=== PATIENT | male | born 1980 | race Caucasian/White ===

== ENCOUNTER 2022-05-19 12:49 | Emergency (ER) | payer BC, SELFPAY ==
[2022-05-19 12:51] VITALS: BP 164/91; PULSE 86; RESP 20; TEMP 36.6; O2SAT 100
--- NOTE | 2022-05-19 12:53 | ED.CHESTPAIN ---
HPI - Chest Pain General Chief Complaint: Chest Pain Stated Complaint: Chest pain over heart Time Seen by Provider: 05/19/22 13:04 Mode of arrival: ambulatory Limitations: no limitations History of Present Illness HPI narrative: 41-year-old male presents with concern for left anterior chest pain that started 1 week ago. He reports pain worsens with movement, reports the area is tender. He did not have any injury or trauma. He denies any rash, bruising, swelling. He works in construction. He denies diaphoresis, nausea, pain radiating to the arm, shoulder, neck or jaw. He has not taken any medications for his symptoms MD complaint: chest pain Related Data Home Medications Medication Instructions Recorded Confirmed insulin lispro 100 unit/mL subcut 05/19/22 subcutaneous pen (Humalog KwikPen (U-100) Insulin) Allergies Allergy/AdvReac Type Severity Reaction Status Date / Time No Known Allergies Allergy Unverified 05/19/22 12:59 Review of Systems Review of Systems: CONSTITUTIONAL: Denies malaise, chills, sweats, or fever. CARDIOVASCULAR: Denies chest pain, palpitations, or edema. RESPIRATORY: Denies cough or dyspnea. GASTROINTESTINAL: Denies abdominal pain, nausea, vomiting SKIN: Denies rash or itching. MUSCULOSKELETAL: Denies back pain, joint pain, or myalgia. Reports anterior chest wall pain NEUROLOGIC: Denies numbness, weakness, or headache. All systems reviewed & are unremarkable except as noted in HPI and below PMFSH Comments At time of signature, agree with nursing past medical, surgical, social and family history. There is no relevant family history pertinent to the presenting complaint Exam Narrative: GENERAL: Well-appearing, well-nourished, and in no acute distress. HEAD: Normocephalic, atraumatic. EYES: PERRLA, sclera clear, and EOMI. No nystagmus. ENT: Nares clear, turbinates pink, no rhinorrhea or epistaxis. Mucous membranes moist. NECK: Supple. No lymphadenopathy. No jugular venous distension, thyromegaly, or carotid bruits. Carotids were easily palpable bilaterally. CHEST: No respiratory distress. Clear to auscultation. No bony deformities, no asymmetry. Speaks in full sentences. HEART: Regular rate and rhythm. No murmur heard. Normal peripheral pulses. EXTREMITIES: Normal range of motion. No edema. Normal strength and sensation. Tenderness upon palpation to the left lateral rib area, around ribs 5 and 6 SKIN: Warm, dry, no visible rash, bruising, swelling, redness. NEURO: Alert and oriented x3. No focal deficits. Cranial nerves II through XII grossly intact PSYCH: Normal mood and affect Course Course Emergency Course: Patient is aware of diagnosis, understands and agrees to treatment plan. Anticipatory guidance given. Patient agrees to follow-up as directed and is aware of reasons to seek care at the emergency department. Portions of this record may have been created with voice recognition software Level of Care: Express Care Visit Vital Signs Vital signs: Vital Signs Temperature 97.9 F 05/19/22 12:51 Pulse Rate 86 05/19/22 12:51 Respiratory Rate 20 05/19/22 12:51 Blood Pressure 164/91 H 05/19/22 12:51 Pulse Oximetry 100 05/19/22 12:51 Oxygen Delivery Room Air 05/19/22 12:51 Temperature 97.9 F 05/19/22 12:51 Pulse Rate 86 05/19/22 12:51 Respiratory Rate 20 05/19/22 12:51 Blood Pressure 164/91 H 05/19/22 12:51 Pulse Oximetry 100 05/19/22 12:51 Oxygen Delivery Room Air 05/19/22 12:51 Reviewed. MDM - Chest Pain MDM Narrative Medical decision making narrative: EDACS score is 2, indicating low risk for adverse cardiac event Exam findings and EKG show no acute concerns or changes; patient is non-toxic appearing and is in no distress. Patient is appropriate for outpatient treatment and follow-up. Differential Diagnosis Differential diagnosis: Likely fracture of rib, pneumothorax, atypical chest pain, st elevation myocardial infarction, cos
--- NOTE | 2022-05-19 13:09 | ECG_ITS ---
Measurements Intervals [place] Rate: 80 P: 40 MI: 132 QRS: 51 QRSD: 94 T: 37 QT: 356 QTc: 413 Interpretive Statements SINUS RHYTHM NORMAL ECG NO PREVIOUS ECG AVAILABLE FOR COMPARISON Electronically Signed On 05-19-2022 13:45:48 MOTOR CHECK[employer] by Cruz Cool D.O.
== END 2022-05-19 13:23 | disposition home or self-care (01) ==
PROVIDERS: Emergency Provider Nurse Practitioner; PCP Nurse Practitioner Family
DX: R07.89 Other chest pain (principal); E11.9 Type 2 diabetes mellitus without complications
CPT/HCPCS: 93005; 99203; G0463